=== PATIENT | male | born 2005 | race Asian ===

== ENCOUNTER 2024-09-15 17:40 | Emergency (ER) | payer BC, SELFPAY ==
[2024-09-15 17:58] VITALS: BP 121/79; PULSE 104; RESP 16; TEMP 37.4; O2SAT 97; BMI 21.2
--- NOTE | 2024-09-15 19:03 | ED.CHESTPAIN ---
HPI - Chest Pain General Time Seen by Provider: 19:03 Date Seen: 09/15/24 Chief Complaint: Chest Pain Stated Complaint: fast heart rate, chest tightness Time Seen by Provider: 09/15/24 19:00 Source: patient and RN notes reviewed Mode of arrival: ambulatory Limitations: no limitations Exam Const Vital Signs, click to edit/add: Vital Signs - 24 hr 09/15/24 17:58 Temperature 99.3 F Pulse Rate [Pulse Oximeter] 104 H Respiratory Rate 16 Blood Pressure [Right Upper Arm] 121/79 Pulse Oximetry 97 Oxygen Delivery Method Room Air Course Vital Signs Vital signs: Initial Vital Signs Temperature 99.3 F 09/15/24 17:58 Temperature Source Oral 09/15/24 17:58 Pulse Rate 104 H 09/15/24 17:58 Respiratory Rate 16 09/15/24 17:58 Blood Pressure 121/79 09/15/24 17:58 Blood Pressure Mean 93 09/15/24 17:58 Pulse Oximetry 97 09/15/24 17:58 Oxygen Delivery Method Room Air 09/15/24 17:58 Vital Signs Temperature 99.3 F 09/15/24 17:58 Pulse Rate 104 H 09/15/24 17:58 Respiratory Rate 16 09/15/24 17:58 Blood Pressure 121/79 09/15/24 17:58 Pulse Oximetry 97 09/15/24 17:58 Oxygen Delivery Method Room Air 09/15/24 17:58 Temperature 99.3 F 09/15/24 17:58 Pulse Rate 104 H 09/15/24 17:58 Respiratory Rate 16 09/15/24 17:58 Blood Pressure 121/79 09/15/24 17:58 Pulse Oximetry 97 09/15/24 17:58 Oxygen Delivery Method Room Air 09/15/24 17:58
== END 2024-09-15 19:26 | disposition home or self-care (01) ==
LOC: ED 19:22
PROVIDERS: Emergency Provider Emergency Medicine
DX: Z53.21 Procedure and treatment not carried out due to patient leaving prior to being seen by health care provider (principal)
CPT/HCPCS: 99281